=== PATIENT | male | born 2000 | race Caucasian/White ===

== ENCOUNTER → 2021-03-18 | Outpatient (CLI) | payer BC ==
[~2021-03-18] MED LIST: ACCUNEB SO1.25 MG/1; ALBUTEROL2.5 MG/31 INH; CLARITIN-D 12 H1 TA1 PO; FLONASE 0.05%50 MCG NASAL; NOSE SPRAY; PREDNISONE 20 M20 M1 PO; VENTOLIN HFA INH8 GM IH
--- NOTE | 2021-03-18 15:45 | 2DMMODE ---
[place] [address] 2 D/M-MODE ECHOCARDIOGRAM Name: HO REYES Room: [facility]#: [id number] Admission: 03/18/21 Attend Phys: BIA Pickett Discharge: Date of : 89 Date of Service: 03/18/21 1545 Report #: [id number] THIS REPORT FOR: cc: Lv Shelton Russell J. DO Liston, Michael J. MD [facility] ~ APPROVED REPORT Study performed: 03/18/2021 14:11:30 EXAM: Comprehensive 2D, Doppler, and color-flow Echocardiogram Patient Location: Out-Patient BSA: 2.00 HR: 74 bpm BP: 120/70 mmHg Other Information Study Quality: Good Indications Murmur 2D Dimensions IVSd: 7.93 (7-11mm) LVOT Diam: 20.49 (18-24mm) LVDd: 44.02 mm PWd: 9.36 (7-11mm) Ascending Ao: 24.75 (22-36mm) LVDs: 26.36 (25-40mm) Aortic Root: 30.08 mm Volumes Left Atrial Volume (Systole) LA ESV Index: 15.80 mL/m2 Aortic Valve AoV Peak Sky.: 1.09 m/s AO Peak Gr.: 4.73 mmHg LVOT Max P.71 mmHg AO Mean Gr.: 2.41 mmHg LVOT Mean P.67 mmHg LVOT Max V: 0.96 m/s AO V2 VTI: 17.11 cm LVOT Mean V: 0.58 m/s CORINE (VTI): 3.54 cm2 LVOT V1 VTI: 18.33 cm Mitral Valve E/A Ratio: 1.91 [place] [address] 2 D/M-MODE ECHOCARDIOGRAM Name: HO REYES Room: [facility]#: [id number] Admission: 03/18/21 Attend Phys: BIA Pickett Discharge: Date of : 89 Date of Service: 03/18/21 1545 Report #: [id number] MV Decel. Time: 209.27 ms MV E Max Sky.: 0.92 m/s MV PHT: 60.69 ms MVA (PHT): 3.63 cm2 TDI E/Lateral E': 5.41 E/Medial E': 6.13 Medial E' Sky.: 0.15 m/s Lateral E' Sky.: 0.17 m/s Pulmonary Valve PV Peak Sky.: 0.92 m/s PV Peak Gr.: 3.41 mmHg Tricuspid Valve RAP Estimate: 5.00 mmHg TR Peak Gr.: 17.88 mmHg RVSP: 22.88 mmHg PA Pressure: 22.88 mmHg Left Ventricle The left ventricle is normal size. There is normal LV segmental wall motion. There is normal left ventricular wall thickness. Left ventricular systolic function is normal. LVEF is 55-60%. The left ventricular diastolic function is normal. Right Ventricle The right ventricle is normal size. The right ventricular systolic function is normal. Atria The left atrium size is normal. The right atrium size is normal. Aortic Valve The aortic valve is normal in structure. No aortic regurgitation is present. There is no aortic valvular stenosis. Mitral Valve The mitral valve is normal in structure. There is no mitral valve regurgitation noted. No evidence of mitral valve stenosis. There is mild mitral valve prolapse. Tricuspid Valve The tricuspid valve is normal in structure. Trace tricuspid regurgitation. No pulmonary hypertension[place] [address] 2 D/M-MODE ECHOCARDIOGRAM Name: HO REYES Room: [facility]#: [id number] Admission: 03/18/21 Attend Phys: BIA Pickett Discharge: Date of : 89 Date of Service: 03/18/21 1545 Report #: [id number] The pulmonary valve is normal in structure. Mild pulmonic regurgitation. Great Vessels The aortic root is normal in size. IVC is normal in size and collapses >50% with inspiration. Pericardium There is no pericardial effusion. <Conclusion> The left ventricle is normal size. There is normal left ventricular wall thickness. Left ventricular systolic function is normal. LVEF is 55-60%. The left ventricular diastolic function is normal. There is normal LV segmental wall motion. Trace tricuspid regurgitation. No pulmonary hypertension. Mild pulmonic regurgitation. IVC is normal in size and collapses >50% with inspiration. <ELECTRONICALLY SIGNED> By: Fish Adrian MD, FACC 03/18/21 1545 1545 1545 Fish Adrian MD, FACC /INF
== END ==
LOC: M.CRD 14:00
PROVIDERS: ATTEND Nurse Practitioner Family
DX: I34.0 Nonrheumatic mitral (valve) insufficiency (principal)